=== PATIENT | male | born 1945 | race Caucasian/White ===

== ENCOUNTER → 2021-09-07 | Outpatient (CLI) | payer MEDICARE, BC ==
[~2021-09-07] MED LIST: AMARYL 2MG TABLE2 MG PO; AMARYL4 MG PO; B COMPLEX1 EACH PO; CYMBALTA60 MG PO; ECOTRIN81 MG PO; EZALLOR SPRINKL40 MG PO; FERROUS SULFAT325 M2 PO; FISH OIL 1,0001 EAC5 PO; FISH OIL 1,0001 EACH PO; GLUCOPHAGE1000 MG PO; JANUVIA100 MG PO; LIPITOR TAB 2020 MG PO; LOPID TAB 600600 MG PO; LOPRESSOR 25 MG25 MG PO; MICROZIDE12.5 MG PO; NORVASC10 MG PO; PLAVIX 75 MG TA75 MG PO; PLAVIX75 MG PO; PLETAL 100 MG100 MG PO; PRINIVIL20 MG PO; PROTONIX 40 MG40 M1 PO; SOLIQUA 100 UNIT3 ML SQ; ULTRAM50 MG PO; XYZAL5 MG PO
== END ==
LOC: EXRD 09:47
DX: E11.51 Type 2 diabetes mellitus with diabetic peripheral angiopathy without gangrene (principal); E11.621 Type 2 diabetes mellitus with foot ulcer; L97.522 Non-pressure chronic ulcer of other part of left foot with fat layer exposed; M79.674 Pain in right toe(s); Z79.4 Long term (current) use of insulin
CPT/HCPCS: 93926